=== PATIENT | male | born 1980 | race Caucasian/White ===

== ENCOUNTER 2016-11-28 13:04 | Emergency (ER) | payer OTHER ==
[~2016-11-28] VITALS: Ht 188 cm; Wt 93.1 kg
[~2016-11-28 13:04] MED LIST: OXYC-57 PO
[2016-11-28 13:12] VITALS: TEMP 36.8; Ht 188 cm; Wt 93.1 kg
[2016-11-28] MEDS ORDERED: KETOROLAC TROMETHAMINE 30 MG/ML VIAL IV STA (15:05)
[2016-11-28] MEDS ORDERED: SODIUM CHLORIDE 0.9% 500ML 500 ML IV STA (15:05)
[2016-11-28] MEDS ORDERED: IBUP-1277 PO (15:21)
[2016-11-28] MEDS ORDERED: GOODY POWDER PO (15:21)
[2016-11-28] MEDS ORDERED: GABA-113 PO (15:21)
--- NOTE | 2016-11-28 15:23 | EMERGENCY ROOM VISIT NOTE ---
History Report prepared by Liya: Ortiz Dillon Under the Supervision of: Dr. Rosalino Angeles D.O. First contact with patient: 14:53 Chief Complaint: LEG PAIN,LEG INJURY Stated Complaint: SEVERE BLAKE. PAIN AND NUMBNESS TO LEGS History of Present Illness The patient is a 36 year old male who presents to the Emergency Room with complaints of severe and constant left leg pain starting about 5 months ago. In July, the patient finished putting in floor tiles in his bathroom and the next day he started having left thigh pain. He reports numbness in left lower leg. He was evaluated at [facility], and by his PCP for his symptoms. The patient was placed in physical therapy which had to be discontinued due to testicular cancer diagnosis. He had an orchiectomy in August. Since the surgery, the patient's pain has worsened. He is now starting to have pain in the right upper leg and numbness in the right lower leg. He describes the pain as a Jair Horse. He has worsening pain with walking and bending over. He has been applying ice and heat without relief. He has been taking Ibuprofen without relief. He was recently evaluated at [facility] for his current symptoms but he did not receive any x-ray or CT scans. Pt denies headache, change in vision, fevers, chest pain, shortness of breath, nausea, vomiting, diarrhea, pain with urination, and melena. He denies any IV drug abuse. As per prior records, the patient was in [place] on 10/15 for psych evaluation. Source of History: patient Onset: about 5 months ago Position: leg (left) Symptom Intensity: severe Quality: other (Jair Horse) Timing: constant Modifying Factors (Worsening): other (walking and bending over) Modifying Factors (Relieving): ibuprofen (without relief), ice (without relief), heat (without relief) Associated Symptoms: No SOB, No chest pain, No fevers, No headache, No nausea, No vomiting Review of Systems See HPI for pertinent positives & negatives. A total of 10 systems reviewed and were otherwise negative. Past Medical & Surgical Medical Problems: (1) Kidney stone Family History Patient reports no known family medical history. Social History Smoking Status: Current Every Day Smoker Marital Status: single Occupation Status: employed Current/Historical Medications Scheduled PRN Gabapentin (Neurontin), Unknown Dose PO DAILY PRN for Pain Ibuprofen (Advil), 800 MG PO DAILY PRN for Pain [Goody Powder], 1 DOSE PO DAILY PRN for Pain Allergies Coded Allergies: No Known Allergies (Verified , 06/12/16) Physical Exam Vital Signs Date Time Temp Pulse Resp B/P Pulse Ox O2 Delivery O2 Flow Rate FiO2 11/28/16 17:38 65 16 123/62 98 11/28/16 16:32 58 18 122/60 95 Room Air 11/28/16 14:51 76 20 129/64 99 Room Air 11/28/16 13:12 36.8 100 20 118/63 98 Room Air Physical Exam GENERAL: Sitting up in bed, disheveled, no acute distress, non-toxic EYE EXAM: normal conjunctiva OROPHARYNX: no exudate, no erythema, lips, buccal mucosa, and tongue normal and mucous membranes are moist NECK: supple, no nuchal rigidity, no adenopathy, non-tender LUNGS: Clear to auscultation. Normal chest wall mechanics HEART: no murmurs, S1 normal and S2 normal ABDOMEN: abdomen soft, non-tender, normo-active bowel sounds, no masses, no rebound or guarding. BACK: Back is symmetrical on inspection and there is no deformity, no midline tenderness, no CVA tenderness. SKIN: no rashes and no bruising UPPER EXTREMITIES: upper extremities are grossly normal. LOWER EXTREMITIES: No pitting edema. Flexion and extension of the hip, knee, ankles and EHL 5/5 bilaterally. Patellar and Achilles reflexes 2/4 bilaterally. NEURO EXAM: Normal speech, o weakness of arms, no weakness of legs. Gross sensations intact with the exception of the anterior posterior shins, able to walk on heels and toes. Medical Decision & Procedures ER Provider Diagnostic Interpretation: MRI:Per my review, radiologist interpretation. MRI OF THE LUMBAR SPINE WITHOUT IV CONTRAST CLINICAL HISTORY: Leg pain and numbness. COMPARISON STUDY: MRI of the lumbar spine dated 06/12/2016. Abdominal CT dated 02/12/2006. TECHNIQUE: MRI of the lumbar spine is performed utilizing various T1 and T2-weighted sequences in the axial and sagittal planes. IV contrast was not administered for this examination. FINDINGS: Lumbar spine: Vertebral body height and alignment are maintained throughout the lumbar spine. There is mild straightening of the lumbar lordosis. The transverse and spinous processes are intact as visualized. There is no evidence of spondylolysis. Tiny anterior osteophytes are seen at L3 and L4. There is minimal degenerative endplate edema at T12-L1. No destructive bony process is seen. Intervertebral discs: There is mild degenerative disc desiccation throughout the lumbar spine. No loss of height is seen. Spinal cord: The visualized spinal cord is normal in morphology and signal intensity. The conus medullaris terminates at the T12-L1 interspace. The nerve roots of the cauda equina are normal in appearance. L1-L2: Unremarkable. L2-L3: Unremarkable. L3-L4: There is a small posterior disc bulge with annular fissure. This contributes to minimal acquired compromise of the central canal at this level with a minimum AP diameter of 10 mm. This causes mild bilateral subarticular stenosis. The neural foramina are widely patent. L4-L5: There is minimal posterior disc bulge with annular fissure. This causes minimal bilateral subarticular stenosis. The central canal and neural foramina are widely patent. L5-S1: Unremarkable. Sacrum: Visualized sacrum is normal in morphology and signal intensity. Soft tissues: The paraspinous soft tissues are normal in appearance. The visualized retroperitoneal structures are grossly normal but incompletely evaluated. IMPRESSION: 1. There is no disc herniation or high-grade central canal stenosis. 2. Mild degenerative disc disease as above with minimal acquired compromise of the central canal at L3-L4. See discussion for detailed [id number] analysis. These findings have not significantly changed from 06/12/2016. 3. No destructive bony lesion is seen. Dictated: 11/28/2016 4:21 PM Transcribed: 11/28/2016 4:49 PM Parviz Electronically signed by: Torey Moreno M.D. 11/28/2016 5:00 PM Dictated Date/Time: 11/28/2016 4:21 PM Laboratory Results 11/28/16 15:25 Red Blood Count 5.25, Mean Corpuscular Volume 85.9, Mean Corpuscular Hemoglobin 28.2, Mean Corpuscular Hemoglobin Concent 32.8, Mean Platelet Volume 9.8, Neutrophils (%) (Auto) 59.3, Lymphocytes (%) (Auto) 27.4, Monocytes (%) (Auto) 10.2, Eosinophils (%) (Auto) 2.6, Basophils (%) (Auto) 0.3, Neutrophils # (Auto ) 3.49, Lymphocytes # (Auto) 1.61, Monocytes # (Auto) 0.60, Eosinophils # (Auto ) 0.15, Basophils # (Auto) 0.02 11/28/16 15:25 Test 11/28/16 15:25 White Blood Count 5.88 K/uL (4.8-10.8) Red Blood Count 5.25 M/uL (4.7-6.1) Hemoglobin 14.8 g/dL (14.0-18.0) Hematocrit 45.1 % (42-52) Mean Corpuscular Volume 85.9 fL (80-100) Mean Corpuscular Hemoglobin 28.2 pg (25-34) Mean Corpuscular Hemoglobin Concent 32.8 g/dl (32-36) Platelet Count 288 K/uL (130-400) Mean Platelet Volume 9.8 fL (7.4-10.4) Neutrophils (%) (Auto) 59.3 % Lymphocytes (%) (Auto) 27.4 % Monocytes (%) (Auto) 10.2 % Eosinophils (%) (Auto) 2.6 % Basophils (%) (Auto) 0.3 % Neutrophils # (Auto) 3.49 K/uL (1.4-6.5) Lymphocytes # (Auto) 1.61 K/uL (1.2-3.4) Monocytes # (Auto) 0.60 K/uL (0.11-0.59) Eosinophils # (Auto) 0.15 K/uL (0-0.5) Basophils # (Auto) 0.02 K/uL (0-0.2) RDW Standard Deviation 41.2 fL (36.4-46.3) RDW Coefficient of Variation 13.0 % (11.5-14.5) Immature Granulocyte % (Auto) 0.2 % Immature Granulocyte # (Auto) 0.01 K/uL (0.00-0.02) Anion Gap 4.0 mmol/L (3-11) Est Creatinine Clear Calc Drug Dose 161.8 ml/min Estimated GFR () 137.2 Estimated GFR (Non- 118.3 BUN/Creatinine Ratio 16.7 (10-20) Calcium Level 8.8 mg/dl (8.5-10.1) Laboratory results per my review. Medications Administered Medications (Trade) Dose Ordered Sig/Justin Route Start Time Stop Time Status Last Admin Dose Admin Ketorolac Tromethamine 30 mg 30 mg NOW STAT IV 11/28/16 15:05 11/28/16 15:07 DC 11/28/16 15:31 30 MG Sodium Chloride (Nss 500ml) 500 ml @ 999 mls/hr Q31M STAT IV 11/28/16 15:05 11/28/16 15:35 DC 11/28/16 15:30 999 MLS/HR ED Course ED COURSE: Vital signs were reviewed and showed hypertensive. The patients medical record was reviewed The above diagnostic studies were performed and reviewed. ED treatments and interventions as stated above. 1453: The patient was evaluated in room A10. A complete history and physical examination was performed. 1505: Sodium Chloride 500 ml @ 999 mls/hr IV, Toradol Inj 30 mg IV 1548: I reviewed records from [place]. 1601: The patient finished the MRI. 1710: Upon reevaluation, the patient is resting comfortably.I discussed my findings with the patient and he understands and agrees with the treatment plan. Based on the patients age, coexisting illnesses, exam and lab findings the decision to treat as an outpatient was made. The patient remained stable while under my care. The patient appeared well at the time of discharge. Medical Decision Differential diagnoses includes but is not limited to lumbar radiculopathy, muscle strain, facture, cauda equina, mass, and disc herniation. Patient is a 36-year-old male who presents the ER for bilateral lower extremity numbness in his calves and anterior shins associated with pain in his femurs. He notes that initially started in his left leg back in June and now has progressed to his right leg over the past month. Has been unchanged for the past month. He is able to move his bowels and urinate without difficulty. No focal deficit on exam. He is completely neurologically intact. Able to walk on heels and toes. Patellar and Achilles reflexes are intact. No signs of GBS. No fevers. MRI of the lumbar spine was unremarkable. CBC along with BMP was unremarkable. Patient was updated regards to his findings and discharged follow-up with his primary care doctor as there was no acute pathology to explain his symptoms. Discussed with Pt concerning signs and symptoms to watch out for. Pt was instructed to follow up with their PCP and discussed with the patient their option to return to the ED at anytime for persistent or worsening symptoms. The appropriate anticipatory guidance and out-patient management, including indications for return to the emergency department, were explained at length to the patient and understood. Blood pressure screening: Patient was found to have an elevated blood pressure and was referred to their primary doctor for recheck and further treatment. Medication Reconciliation: I attest that I have personally reviewed the patient' s current medication list. Impression Primary Impression: Bilateral leg pain Scribe Attestation The scribe's documentation has been prepared under my direction and personally reviewed by me in its entirety. I confirm that the note above accurately reflects all work, treatment, procedures, and medical decision making performed by me. Departure Information Dispostion Home / Self-Care Referrals Ellie Benson D.O. (PCP) Forms HOME CARE DOCUMENTATION FORM, IMPORTANT VISIT INFORMATION Patient Instructions ED Paraesthesias, My [facility] Additional Instructions Please follow up with your primary care doctor with in the next 24 hours. Any worsening of your symptoms, please return to the ED immediately. This includes fevers greater than 100.4, severe back pain, inability to urinate, move her bowels, weakness in your legs, new numbness, or any other concerning signs or symptoms from your standpoint. MRI of your lumbar spine was completely negative.
[2016-11-28 15:37] LABS: BASO % 0.3 %; BASO ABS # 0.02 K/uL (0-0.2); COMPLETE YES; EOS % 2.6 %; HEMATOCRIT 45.1 % (42-52); IG% 0.2 %; LYMPH % 27.4 %; LYMPH ABS # 1.61 K/uL (1.2-3.4); MEAN CELL VOLUME 85.9 fL (80-100); MEAN CORPUSCULAR HEMOGLOBIN 28.2 pg (25-34); MEAN CORPUSCULAR HGB CONC 32.8 g/dl (32-36); MEAN PLATELET VOLUME 9.8 fL (7.4-10.4); MONO % 10.2 %; NEUT % 59.3 %; PLATELET COUNT 288 K/uL (130-400); RED BLOOD COUNT 5.25 M/uL (4.7-6.1); WHITE BLOOD COUNT 5.88 K/uL (4.8-10.8)
[2016-11-28 15:54] LABS: BUN/CREATININE RATIO 16.7 (10-20); CALCIUM 8.8 mg/dl (8.5-10.1); CREATININE 0.72 mg/dl (0.60-1.40)
--- NOTE | 2016-11-28 16:49 | DIAGNOSTIC IMAGING REPORT ---
MRI OF THE LUMBAR SPINE WITHOUT IV CONTRAST CLINICAL HISTORY: Leg pain and numbness. COMPARISON STUDY: MRI of the lumbar spine dated 06/12/2016. Abdominal CT dated 02/12/2006. TECHNIQUE: MRI of the lumbar spine is performed utilizing various T1 and T2-weighted sequences in the axial and sagittal planes. IV contrast was not administered for this examination. FINDINGS: Lumbar spine: Vertebral body height and alignment are maintained throughout the lumbar spine. There is mild straightening of the lumbar lordosis. The transverse and spinous processes are intact as visualized. There is no evidence of spondylolysis. Tiny anterior osteophytes are seen at L3 and L4. There is minimal degenerative endplate edema at T12-L1. No destructive bony process is seen. Intervertebral discs: There is mild degenerative disc desiccation throughout the lumbar spine. No loss of height is seen. Spinal cord: The visualized spinal cord is normal in morphology and signal intensity. The conus medullaris terminates at the T12-L1 interspace. The nerve roots of the cauda equina are normal in appearance. L1-L2: Unremarkable. L2-L3: Unremarkable. L3-L4: There is a small posterior disc bulge with annular fissure. This contributes to minimal acquired compromise of the central canal at this level with a minimum AP diameter of 10 mm. This causes mild bilateral subarticular stenosis. The neural foramina are widely patent. L4-L5: There is minimal posterior disc bulge with annular fissure. This causes minimal bilateral subarticular stenosis. The central canal and neural foramina are widely patent. L5-S1: Unremarkable. Sacrum: Visualized sacrum is normal in morphology and signal intensity. Soft tissues: The paraspinous soft tissues are normal in appearance. The visualized retroperitoneal structures are grossly normal but incompletely evaluated. IMPRESSION: 1. There is no disc herniation or high-grade central canal stenosis. 2. Mild degenerative disc disease as above with minimal acquired compromise of the central canal at L3-L4. See discussion for detailed [id number] analysis. These findings have not significantly changed from 06/12/2016. 3. No destructive bony lesion is seen. Dictated: 11/28/2016 4:21 PM Transcribed: 11/28/2016 4:49 PM Parviz Electronically signed by: Torey Moreno M.D. 11/28/2016 5:00 PM Dictated Date/Time: 11/28/2016 4:21 PM
[2016-11-28 17:38] VITALS: BP 123/62; PULSE 65; O2SAT 98
== END 2016-11-28 17:40 | disposition home or self-care (01) ==
LOC: C.EDB 13:06 → C.EDA 17:40
DX: M79.661 Pain in right lower leg (principal); M79.662 Pain in left lower leg; Z87.442 Personal history of urinary calculi; Z98.890 Other specified postprocedural states; F17.200 Nicotine dependence, unspecified, uncomplicated